=== PATIENT | female | born 1980 | race Caucasian/White ===

== ENCOUNTER 2017-07-24 20:09 | Inpatient (IN) | payer MEDICAID, OTHER ==
[2017-07-24] MEDS ORDERED: NORMAL SALINE 1000 ML 1,000 ML IV ONE ×2 (20:32→22:00)
[2017-07-24] MEDS ORDERED: HYDROMORPHONE HCL INJ/PF 2 MG/ML AMPULE IV ONE (20:32)
[2017-07-24] MEDS ORDERED: METOCLOPRAMIDE HCL INJ/PF 10 MG/2 ML SDV IV ONE (20:32)
--- NOTE | 2017-07-24 20:33 | ER Document Report ---
ED Medical Screen (RME) - General Chief Complaint: Abdominal Pain Stated Complaint: ABDOMINAL PAIN Time Seen by Provider: 07/24/17 20:26 Mode of Arrival: Ambulatory Information source: Patient Notes: 37-year-old female no previous abdominal history presents with complaints of left lower quadrant abdominal pain patient temperature 100.1 here tachycardic, patient did take Tylenol with codeine prior to arrival, she was seen at urgent care had urinalysis performed no signs of infection or blood were noted Patient denies any vaginal bleeding or discharge I have greeted and performed a rapid initial assessment of this patient. A comprehensive ED assessment and evaluation of the patient, analysis of test results and completion of the medical decision making process will be conducted by additional ED providers. PHYSICAL EXAMINATION: GENERAL: Well-appearing, well-nourished and in no acute distress. HEAD: Atraumatic, normocephalic. EYES: Pupils equal round extraocular movements intact, conjunctiva are normal. ENT: Nares patent NECK: Normal range of motion LUNGS: No respiratory distress Heart: Tachycardic Abdomen: Tender left lower quadrant with mild guarding Musculoskeletal: Normal range of motion NEUROLOGICAL: Normal speech, normal gait. PSYCH: Normal mood, normal affect. SKIN: Warm, Dry, normal turgor, no rashes or lesions noted. TRAVEL OUTSIDE OF THE [place] IN LAST 30 DAYS: No - Related Data Allergies/Adverse Reactions: No Known Allergies Allergy (Verified 07/24/17 20:09) Past Medical History - Social History Chew tobacco use (# tins/day): No Frequency of alcohol use: None Renal/ Medical History: Denies: Hx Peritoneal Dialysis Physical Exam - Vital signs Vitals: Temp Pulse Resp BP Pulse Ox 100.1 F 122 H 17 117/70 99 07/24/17 20:22 07/24/17 20:22 07/24/17 20:22 07/24/17 20:22 07/24/17 20:22 Course - Vital Signs Vital signs: Temp Pulse Resp BP Pulse Ox 100.1 F 122 H 17 117/70 99 07/24/17 20:22 07/24/17 20:22 07/24/17 20:22 07/24/17 20:22 07/24/17 20:22 Doctor's Discharge - Discharge Referrals: ROMMEL HILLMAN MD [Primary Care Provider] - Follow up as needed
[2017-07-24 20:59] LABS: HEMATOCRIT 40.7 % (36.0-47.0); HEMOGLOBIN 13.8 g/dL (12.0-15.5); MEAN CORPUSCULAR HEMOGLOBIN 28.7 pg (27.0-33.4); MEAN CORPUSCULAR HGB CONC 33.8 g/dL (32.0-36.0); MEAN CORPUSCULAR VOLUME 85 fl (80-97); PLATELET COUNT 454 10^3/uL (150-450); RED CELL DISTRIBUTION WIDTH 13.6 % (11.5-14.0); WHITE BLOOD COUNT 20.4 10^3/uL (4.0-10.5)
[2017-07-24 21:10] LABS: APPEARANCE,URINE CLEAR; BILIRUBIN,URINE NEGATIVE (NEGATIVE); COLOR,URINE YELLOW; GLUCOSE, URINE NEGATIVE (NEGATIVE); KETONES,URINE NEGATIVE (NEGATIVE); LEUKOCYTE ESTERASE,URINE NEGATIVE (NEGATIVE); NITRITE,URINE NEGATIVE (NEGATIVE); PROTEIN,URINE NEGATIVE (NEGATIVE); URINE SPECIFIC GRAVITY 1.012; UROBILINOGEN,URINE NEGATIVE mg/dL (<2.0)
[2017-07-24 21:25] LABS: ALANINE AMINOTRANSFERASE 26 U/L (9-52); ALBUMIN 4.2 g/dL (3.5-5.0); ALKALINE PHOSPHATASE 52 U/L (38-126); ANION GAP 11 (5-19); ASPARTATE AMINO TRANSFERASE 48 U/L (14-36); BILIRUBIN,DIRECT 0.3 mg/dL (0.0-0.4); BILIRUBIN,TOTAL 0.9 mg/dL (0.2-1.3); BLOOD UREA NITROGEN 6 mg/dL (7-20); CALCIUM 9.6 mg/dL (8.4-10.2); CARBON DIOXIDE 28 mmol/L (22-30); CHLORIDE 101 mmol/L (98-107); GLUCOSE 102 mg/dL (75-110); LIPASE 38.7 U/L (23-300); POTASSIUM 3.7 mmol/L (3.6-5.0); TOTAL PROTEIN 7.6 g/dL (6.3-8.2)
[2017-07-24 21:29] LABS: ABSOLUTE LYMPHOCYTES# (MANUAL) 2.4 10^3/uL (0.5-4.7); ABSOLUTE MONOCYTES # (MANUAL) 0.6 10^3/uL (0.1-1.4); ABSOLUTE NEUTROPHILS# (MANUAL) 16.9 10^3/uL (1.7-8.2); BAND NEUTROPHILS % (MANUAL) 1 % (3-5); BASOPHILS % (MANUAL) 1 % (0-2); EOSINOPHILS % (MANUAL) 1 % (0-6); LYMPHOCYTES % (MANUAL) 12 % (13-45); MONOCYTES % (MANUAL) 3 % (3-13); SEGMENTED NEUTROPHILS % (MAN) 82 % (42-78); TOTAL CELLS COUNTED 100
[2017-07-24 21:30] LABS: PLATELET COMMENT ADEQUATE
--- NOTE | 2017-07-24 21:45 | RADIOLOGY REPORT (SQ) ---
EXAM DESCRIPTION: CT ABD/PELVIS WITH IV ONLY COMPLETED DATE/TIME: 07/24/2017 9:35 pm REASON FOR STUDY: LLQ pain fever COMPARISON: None. TECHNIQUE: CT scan of the abdomen and pelvis performed using helical scanning technique with dynamic intravenous contrast injection. No oral contrast. Images reviewed with lung, soft tissue, and bone windows. Reconstructed coronal and sagittal MPR images reviewed. Delayed images for evaluation of the urinary system also acquired. All images stored on PACS. All CT scanners at this facility use dose modulation, iterative reconstruction, and/or weight based d osing when appropriate to reduce radiation dose to as low as reasonably achievable (ALARA). [facility]: Dose Right [facility]: CareDose [facility]: Dose Right [facility]: Teradose 4D [facility]: [employer] CONTRAST TYPE AND DOSE: contrast/concentration: Isovue 370.00 mg/ml; Total Contrast Delivered: 89.0 ml; Total Saline Delivered: 70.0 ml RENAL FUNCTION: None required. The patient is less than 50 years old. RADIATION DOSE: CT Rad equipment meets quality standard of care and radiation dose reduction techniq ues were employed. CTDIvol: 8.8 - 12.8 mGy. DLP: 1143 mGy-cm.. LIMITATIONS: None. FINDINGS: LOWER CHEST: No significant findings. No nodules or infiltrates. LIVER: Normal size. No masses. No dilated ducts. SPLEEN: Normal size. No focal lesions. PANCREAS: No masses. No significant calcifications. No adjacent inflammation or peripancreatic fluid collections. Pancreatic duct not dilated. GALLBLADDER: No identified stones by CT criteria. No inflammatory changes to suggest cholecystitis. ADRENAL GLANDS: No significant masses or asymmetry. RIGHT KIDNEY AND URETER: No solid masses. No significant calcifications. No hydronephrosis or hyd roureter. LEFT KIDNEY AND URETER: No solid masses. No significant calcifications. No hydronephrosis or hydr oureter. AORTA AND VESSELS: No aneurysm. No dissection. Renal arteries, SMA, celiac without stenosis. RETROPERITONEUM: No retroperitoneal adenopathy, hemorrhage or masses. BOWEL AND PERITONEAL CAVITY: Mesenteric stranding associated with segment of proximal sigmoid colon c ontaining diverticulum. No organized fluid collection. No ascites or free air. APPENDIX: Normal. PELVIS: 3 cm cyst left ovary. ABDOMINAL WALL: No masses. No hernias. BONES: No significant or acute findings. OTHER: No other significant finding. IMPRESSION: Sigmoid diverticulitis. TECHNICAL DOCUMENTATION: JOB ID: [id number] Quality ID # [id number]: Final reports with documentation of one or more dose reduction techniques (e.g., Au tomated exposure control, adjustment of the mA and/or kV according to patient size, use of iterative reconstruction technique) 2010 [employer]- All Rights Reserved Reading location - IP/workstation name: [facility]
[2017-07-24] MEDS ORDERED: METRONIDAZOLE 500 MG/NS RTU 100 ML IV ONE (21:59)
[2017-07-24] MEDS ORDERED: CIPROFLOXACIN 400 MG/D5W RTU 400 MG/200 ML RTUPB IV SCH (22:00)
[2017-07-24] MEDS ORDERED: ONDANSETRON HCL INJ/PF 4 MG/2 ML SDV IV ONE (22:25)
--- NOTE | 2017-07-24 22:27 | ER Document Report ---
ED General - General Chief Complaint: Abdominal Pain Stated Complaint: ABDOMINAL PAIN Time Seen by Provider: 07/24/17 20:26 Mode of Arrival: Ambulatory Notes: Patient is a 37-year-old female without chronic medical problems who presents with 48 hours of progressively worsening left lower quadrant abdominal pain with associated fever and vomiting. Patient states that the symptoms started gradually and have gotten progressively worse since that time. She does described as an aching, throbbing, constant pain to the left lower abdomen. Nothing improves the pain. Touching the area or moving worsens the pain. She denies any history of similar symptoms in the past. She has not seen her primary doctor regarding today's concerns. She denies any dysuria, vaginal bleeding, vaginal discharge, cough, sputum production, headache or neck pain. TRAVEL OUTSIDE OF THE [place] IN LAST 30 DAYS: No - Related Data Allergies/Adverse Reactions: No Known Allergies Allergy (Verified 07/24/17 20:09) Past Medical History - General Information source: Patient - Social History Smoking Status: Never Smoker Chew tobacco use (# tins/day): No Frequency of alcohol use: None Drug Abuse: None Lives with: Spouse/Significant other Family History: Reviewed & Not Pertinent Patient has suicidal ideation: No Patient has homicidal ideation: No Renal/ Medical History: Denies: Hx Peritoneal Dialysis Review of Systems - Review of Systems Notes: Constitutional: Positive for fever. HENT: Negative for sore throat. Eyes: Negative for visual changes. Cardiovascular: Negative for chest pain. Respiratory: Negative for shortness of breath. Gastrointestinal: Positive for abdominal pain and vomiting Genitourinary: Negative for dysuria. Musculoskeletal: Negative for back pain. Skin: Negative for rash. Neurological: Negative for headaches, weakness or numbness. 10 point ROS negative except as marked above and in HPI. Physical Exam - Vital signs Vitals: Temp Pulse Resp BP Pulse Ox 100.1 F 122 H 17 117/70 99 07/24/17 20:22 07/24/17 20:22 07/24/17 20:22 07/24/17 20:22 07/24/17 20:22 Interpretation: Tachycardic Notes: PHYSICAL EXAMINATION: GENERAL: Appears moderately uncomfortable but no acute distress HEAD: Atraumatic, normocephalic. EYES: Pupils equal round and reactive to light, extraocular movements intact, sclera anicteric, conjunctiva are normal. ENT: nares patent, oropharynx clear without exudates. Moderately dry mucous membranes. NECK: Normal range of motion, supple without lymphadenopathy LUNGS: Breath sounds clear to auscultation bilaterally and equal. No wheezes rales or rhonchi. HEART: Regular tachycardia without murmurs ABDOMEN: Soft, focal tenderness to the left lower quadrant without rebound or guarding. No other localized areas of tenderness. EXTREMITIES: Normal range of motion, no pitting or edema. No cyanosis. NEUROLOGICAL: No focal neurological deficits. Moves all extremities spontaneously and on command. PSYCH: Normal mood, normal affect. SKIN: Warm, Dry, normal turgor, no rashes or lesions noted. Course - Re-evaluation Re-evalutation: 07/24/17 22:25 Patient presents with signs and symptoms as well as CT and labs are consistent with acute diverticulitis. Patient did however present meeting sepsis criteria with a white count of 20, initially quite tachycardic, and has had a fever at home up to 100.4F. Patient CT does show diverticula is without any evidence of acute perforation. The remainder of her abdominal exam shows only localized tenderness to the left lower quadrant without rebound or guarding. She is otherwise nontoxic in appearance but continues to have nausea and vomiting here in the emergency department. She has also required IV analgesia for pain control. Given her initial vitals, her prominent leukocytosis and ongoing significant pain and nausea I do believe she requires hospitalization. She has been started on IV metronidazole and ciprofloxacin. I have discussed with the hospitalist for admission who has accepted. - Vital Signs Vital signs: Temp Pulse Resp BP Pulse Ox 98.6 F 84 17 104/62 98 07/25/17 00:18 07/25/17 00:18 07/25/17 00:18 07/25/17 00:18 07/25/17 00:18 - Laboratory Result Diagrams: 07/24/17 20:38 07/24/17 20:38 Laboratory results interpreted by me: 07/24/17 07/24/17 20:38 20:38 WBC 20.4 H Plt Count 454 H Seg Neuts % (Manual) 82 H Band Neutrophils % 1 L Lymphocytes % (Manual) 12 L Abs Neuts (Manual) 16.9 H BUN 6 L AST 48 H - Diagnostic Test Radiology reviewed: Reports reviewed Discharge - Discharge Clinical Impression: Diverticulitis Sepsis Qualifiers: Sepsis type: sepsis due to unspecified organism Qualified Code(s): A41.9 - Sepsis, unspecified organism Condition: Fair Disposition: ADMITTED INPATIENT Admitting Provider: Hospitalist Unit Admitted: Medical Floor
[2017-07-24] MEDS ORDERED: ACETAMINOPHEN 325 MG TABLET PO PRN (22:41)
[2017-07-24] MEDS ORDERED: OXYCODONE-ACETAMINOPHEN 5-325 MG TABLET PO PRN (22:41)
[2017-07-24] MEDS ORDERED: PROMETHAZINE HCL INJ 25 MG/1 ML VIAL IV PRN (22:41)
[2017-07-24] MEDS ORDERED: HYDROMORPHONE HCL INJ/PF 2 MG/ML AMPULE IV PRN (22:45)
--- NOTE | 2017-07-24 22:56 | PDOC H&P ---
History of Present Illness Admission Date/PCP: 07/24/17 22:41 RUMA WYNNE MD History of Present Illness: TOM SALAZAR is a 37 year old female with no past chronic medical illness presents with chief complaint of abdominal pain localized to her left lower quadrant associated with fever of 100.1, nausea and vomiting. Her CT scan of the abdomen is compatible with sigmoid diverticulitis. Her blood work shows also significant leukocytosis of 20,000. Patient denied any chest pain, cough, diaphoresis. She does not have diarrhea or dysuria. No headache dizziness or blurry vision. Past Medical History Medical History: None Past Surgical History Past Surgical History: Reports: None Social History Smoking Status: Never Smoker - Advance Directive Resuscitation Status: Full Code Family History Family History: None Parental Family History Reviewed: Yes Children Family History Reviewed: Yes Sibling(s) Family History Reviewed.: Yes Medication/Allergy Allergies/Adverse Reactions: No Known Allergies Allergy (Verified 07/24/17 20:09) Review of Systems Constitutional: PRESENT: as per HPI Eyes: PRESENT: as per HPI Cardiovascular: ABSENT: chest pain, dyspnea on exertion, edema, orthropnea, palpitations Respiratory: ABSENT: cough, hemoptysis Gastrointestinal: PRESENT: abdominal pain, nausea, vomiting Genitourinary: ABSENT: dysuria, hematuria Integumentary: ABSENT: rash, wounds Neurological: ABSENT: abnormal gait, abnormal speech, confusion, dizziness, focal weakness, syncope Psychiatric: ABSENT: anxiety, depression, homidical ideation, suicidal ideation Endocrine: ABSENT: cold intolerance, heat intolerance, polydipsia, polyuria Physical Exam Vital Signs: Temp Pulse Resp BP Pulse Ox 100.1 F 122 H 17 117/70 99 07/24/17 20:22 07/24/17 20:22 07/24/17 20:22 07/24/17 20:22 07/24/17 20:22 General appearance: PRESENT: mild distress Head exam: PRESENT: atraumatic, normocephalic Eye exam: PRESENT: conjunctiva pink, EOMI, PERRLA. ABSENT: scleral icterus Neck exam: ABSENT: carotid bruit, JVD, lymphadenopathy, thyromegaly Respiratory exam: PRESENT: clear to auscultation karl. ABSENT: rales, rhonchi, wheezes Cardiovascular exam: PRESENT: RRR. ABSENT: diastolic murmur, rubs, systolic murmur GI/Abdominal exam: PRESENT: tenderness - Left lower quadrant abdominal tenderness Rectal exam: PRESENT: deferred Extremities exam: PRESENT: full ROM. ABSENT: calf tenderness, clubbing, pedal edema Neurological exam: PRESENT: alert, awake, oriented to person, oriented to place , oriented to time, oriented to situation, CN II-XII grossly intact. ABSENT: motor sensory deficit Psychiatric exam: PRESENT: appropriate affect, normal mood. ABSENT: homicidal ideation, suicidal ideation Results Impressions: Abdomen/Pelvis CT 07/24/17 20:30 IMPRESSION: Sigmoid diverticulitis. Assessment & Plan - Diagnosis (1) Sigmoid diverticulitis Is this a current diagnosis for this admission?: Yes Plan: Patient has been started on IV ciprofloxacin and Flagyl. Cautious IV hydration Pain management and keep her n.p.o. (2) Sepsis Qualifiers: Sepsis type: sepsis due to unspecified organism Qualified Code(s): A41.9 - Sepsis, unspecified organism Is this a current diagnosis for this admission?: Yes Plan: As a #1 - Time Time Spent: 30 to 50 Minutes - Inpatient Certification Medical Necessity: Need Close Monitoring Due to Risk of Patient Decompensation, Need for IV Antibiotics
[2017-07-25] MEDS: MORPHINE SULFATE 10 MG/ML INJ IV PRN ×3 (00:31→20:37)
[2017-07-25] MEDS: METRONIDAZOLE 500 MG/NS RTU 100 ML IV SCH ×4 (03:32→20:38)
[2017-07-25 06:26] LABS: ABSOLUTE BASOPHILS # (AUTO) 0.1 10^3/uL (0.0-0.2); ABSOLUTE EOSINOPHILS # (AUTO) 0.3 10^3/uL (0.0-0.6); ABSOLUTE LYMPHOCYTES (AUTO) 2.6 10^3/uL (0.5-4.7); ABSOLUTE MONOCYTES (AUTO) 1.2 10^3/uL (0.1-1.4); ABSOLUTE NEUT (AUTO) 10.4 10^3/uL (1.7-8.2); BASOPHILS % (AUTO) 0.4 % (0-2); EOSINOPHILS % (AUTO) 1.8 % (0-6); HEMATOCRIT 34.2 % (36.0-47.0); LYMPHOCYTES % (AUTO) 17.9 % (13-45); MEAN CORPUSCULAR VOLUME 85 fl (80-97); MONOCYTES % (AUTO) 8.2 % (3-13); PLATELET COUNT 330 10^3/uL (150-450); RED BLOOD COUNT 4.04 10^6/uL (3.72-5.28); RED CELL DISTRIBUTION WIDTH 13.3 % (11.5-14.0); SEGMENTED NEUTROPHILS % (AUTO) 71.7 % (42-78); TOTAL CELLS COUNTED % (AUTO) 100 %; WHITE BLOOD COUNT 14.5 10^3/uL (4.0-10.5)
[2017-07-25 06:27] LABS: HEMOGLOBIN 11.3 g/dL (12.0-15.5)
[2017-07-25 06:35] LABS: ANION GAP 9 (5-19); BLOOD UREA NITROGEN 5 mg/dL (7-20); CARBON DIOXIDE 26 mmol/L (22-30); CHLORIDE 104 mmol/L (98-107); GLUCOSE 101 mg/dL (75-110); POTASSIUM 4.1 mmol/L (3.6-5.0); SODIUM 138.8 mmol/L (137-145)
[2017-07-25] MEDS: ENOXAPARIN SODIUM INJ 40 MG/0.4 ML DISP.SYRIN SUBCUT SCH (09:56)
[2017-07-25] MEDS: CIPROFLOXACIN 400 MG/D5W RTU 400 MG/200 ML RTUPB IV SCH ×2 (10:44→23:25)
[2017-07-25] MEDS: NORMAL SALINE 1000 ML 1,000 ML IV PRN (10:49)
--- NOTE | 2017-07-25 12:03 | PDOC PROGRESS REPORT ---
Subjective Progress Note for:: 07/25/17 Subjective:: Patient is continuing to have lower abdominal pain but it is improving. She had a dose of morphine last night and another this morning. She had one episode of emesis this morning and received some Phenergan and is feeling better. No fevers or chills. No chest pain or difficulty breathing. She is urinating well. No bowel movement today. We discussed the medical problems of diverticulosis and diverticulitis and she had a chance to ask her questions. Reason For Visit: SIGMOID DIVERTICULITIS Physical Exam Vital Signs: Temp Pulse Resp BP Pulse Ox 98.9 F 90 18 108/58 L 98 07/25/17 08:19 07/25/17 08:19 07/25/17 08:19 07/25/17 08:19 07/25/17 08:19 General appearance: PRESENT: no acute distress, cooperative, obese Eye exam: ABSENT: conjunctival injection, scleral icterus Mouth exam: PRESENT: moist, tongue midline Respiratory exam: PRESENT: clear to auscultation karl, unlabored. ABSENT: rales , rhonchi, wheezes Cardiovascular exam: PRESENT: RRR. ABSENT: systolic murmur Pulses: PRESENT: normal radial pulses GI/Abdominal exam: PRESENT: normal bowel sounds, soft, tenderness. ABSENT: distended, guarding, rebound Extremities exam: ABSENT: pedal edema Neurological exam: PRESENT: alert, awake, oriented to person, oriented to place , oriented to situation, CN II-XII grossly intact Psychiatric exam: PRESENT: appropriate affect. ABSENT: anxious Skin exam: PRESENT: dry, intact, warm Results Laboratory Results: 07/25/17 05:58 07/25/17 05:58 07/25/17 07/25/17 05:58 05:58 WBC 14.5 H RBC 4.04 Hgb 11.3 L D Hct 34.2 L MCV 85 MCH 28.0 MCHC 33.0 RDW 13.3 Plt Count 330 Seg Neutrophils % 71.7 Lymphocytes % 17.9 Monocytes % 8.2 Eosinophils % 1.8 Basophils % 0.4 Absolute Neutrophils 10.4 H Absolute Lymphocytes 2.6 Absolute Monocytes 1.2 Absolute Eosinophils 0.3 Absolute Basophils 0.1 Sodium 138.8 Potassium 4.1 Chloride 104 Carbon Dioxide 26 Anion Gap 9 BUN 5 L Creatinine 0.64 Est GFR ( Amer) > 60 Est GFR (Non-Af Amer) > 60 Glucose 101 Calcium 9.0 Impressions: Abdomen/Pelvis CT 07/24/17 20:30 IMPRESSION: Sigmoid diverticulitis. Assessment & Plan - Diagnosis (1) Sigmoid diverticulitis Is this a current diagnosis for this admission?: Yes Plan: Patient's leukocytosis is improved significantly on Cipro and Flagyl and so we will continue these medications. As she has had nausea and vomiting I will not change these medications to p.o. at this time. CT scan does not show abscess or other complication. We will continue to monitor clinically and transition to oral antibiotics when she is more stable. (2) Acute abdominal pain Is this a current diagnosis for this admission?: Yes Plan: Secondary to acute diverticulitis. I have discontinued oral oxycodone and IV Dilaudid and we will continue with IV morphine that she has been using with good effect. He is not using much IV morphine. She is me that she is able to tolerate a lot of pain and prefers not to use these medications and I told her that was fine. Once she is able to eat and drink without difficulty we can transition her to oral medications. (3) Nausea and vomiting Is this a current diagnosis for this admission?: Yes Plan: Likely secondary to acute diverticulitis. It is also possible that it is related to morphine that she did not vomit after morphine last night. Will continue as needed Phenergan every 6 hours for nausea and vomiting. Will continue morphine and if she has another vomiting episode after morphine we will change that medication. She is feeling very dry and I will give her a trial of ice chips. If this causes worsening pain we will discontinue ice chips. - Time Time Spent with patient: 25-34 minutes Medications reviewed and adjusted accordingly: Yes - Inpatient Certification Based on my medical assessment, after consideration of the patient's comorbidities, presenting symptoms, or acuity I expect that the services needed warrant INPATIENT care.: Yes I certify that my determination is in accordance with my understanding of Medicare's requirements for reasonable and necessary INPATIENT services [42 CFR 412.3e].: Yes Medical Necessity: Need for IV Antibiotics
[2017-07-25] MEDS ORDERED: ACETAMINOPHEN 325 MG TABLET PO PRN (20:26)
[2017-07-26] MEDS: PROMETHAZINE HCL INJ 25 MG/1 ML VIAL IV PRN ×4 (01:17→19:56)
[2017-07-26] MEDS: METRONIDAZOLE 500 MG/NS RTU 100 ML IV SCH ×4 (02:08→20:54)
[2017-07-26 06:37] LABS: ABSOLUTE EOSINOPHILS # (AUTO) 0.1 10^3/uL (0.0-0.6); ABSOLUTE LYMPHOCYTES (AUTO) 1.2 10^3/uL (0.5-4.7); ABSOLUTE MONOCYTES (AUTO) 0.7 10^3/uL (0.1-1.4); ABSOLUTE NEUT (AUTO) 10.2 10^3/uL (1.7-8.2); BASOPHILS % (AUTO) 0.4 % (0-2); HEMATOCRIT 32.8 % (36.0-47.0); HEMOGLOBIN 11.2 g/dL (12.0-15.5); LYMPHOCYTES % (AUTO) 10.1 % (13-45); MEAN CORPUSCULAR HEMOGLOBIN 28.8 pg (27.0-33.4); MEAN CORPUSCULAR VOLUME 85 fl (80-97); MONOCYTES % (AUTO) 5.6 % (3-13); PLATELET COUNT 288 10^3/uL (150-450); RED BLOOD COUNT 3.87 10^6/uL (3.72-5.28); RED CELL DISTRIBUTION WIDTH 13.7 % (11.5-14.0); SEGMENTED NEUTROPHILS % (AUTO) 82.9 % (42-78); TOTAL CELLS COUNTED % (AUTO) 100 %; WHITE BLOOD COUNT 12.3 10^3/uL (4.0-10.5)
[2017-07-26 06:57] LABS: ANION GAP 8 (5-19); BLOOD UREA NITROGEN 7 mg/dL (7-20); CARBON DIOXIDE 25 mmol/L (22-30); CHLORIDE 106 mmol/L (98-107); GLUCOSE 96 mg/dL (75-110); POTASSIUM 3.9 mmol/L (3.6-5.0); SODIUM 138.8 mmol/L (137-145)
[2017-07-26] MEDS: CIPROFLOXACIN 400 MG/D5W RTU 400 MG/200 ML RTUPB IV SCH ×2 (10:08→22:42)
[2017-07-26] MEDS: ENOXAPARIN SODIUM INJ 40 MG/0.4 ML DISP.SYRIN SUBCUT SCH (10:08)
[2017-07-26] MEDS: NORMAL SALINE 1000 ML 1,000 ML IV PRN ×2 (11:32→22:42)
[2017-07-26] MEDS: HYDROMORPHONE HCL INJ/PF 2 MG/ML AMPULE IV PRN ×2 (13:24→22:49)
--- NOTE | 2017-07-26 16:26 | PDOC PROGRESS REPORT ---
Subjective Progress Note for:: 07/26/17 Subjective:: Her abdominal pain is improving, she continues to have nausea and vomiting. It is possible that her morphine for abdominal pain is causing the vomiting. She is not having chest pain or difficulty breathing. She is sleeping fine. She would like to try some ice chips and I think that is fine. No fevers or chills. No bloody stools. Not moved her bowels. She has dark urine. Reason For Visit: SIGMOID DIVERTICULITIS, nausea and vomiting Physical Exam Vital Signs: Temp Pulse Resp BP Pulse Ox 98.7 F 94 16 117/66 100 07/26/17 11:58 07/26/17 11:58 07/26/17 11:58 07/26/17 11:58 07/26/17 11:58 Intake & Output 07/25/17 07/26/17 07/27/17 06:59 06:59 06:59 Intake Total 1637 Output Total 400 Balance 1237 General appearance: PRESENT: no acute distress, cooperative Head exam: PRESENT: atraumatic, normocephalic Eye exam: ABSENT: conjunctival injection, scleral icterus Mouth exam: PRESENT: moist, tongue midline Respiratory exam: PRESENT: clear to auscultation karl, unlabored. ABSENT: rales , rhonchi, wheezes Cardiovascular exam: PRESENT: RRR, systolic murmur Pulses: PRESENT: normal radial pulses, normal dorsalis pedis pul GI/Abdominal exam: PRESENT: normal bowel sounds, soft, tenderness. ABSENT: distended, guarding, rebound Extremities exam: ABSENT: pedal edema Musculoskeletal exam: PRESENT: normal inspection Neurological exam: PRESENT: altered, awake, oriented to person, oriented to place, oriented to situation, CN II-XII grossly intact Psychiatric exam: PRESENT: appropriate affect. ABSENT: anxious Skin exam: PRESENT: dry, intact, warm Results Laboratory Results: 07/26/17 06:11 07/26/17 06:11 07/26/17 07/26/17 06:11 06:11 WBC 12.3 H RBC 3.87 Hgb 11.2 L Hct 32.8 L MCV 85 MCH 28.8 MCHC 34.0 RDW 13.7 Plt Count 288 Seg Neutrophils % 82.9 H Lymphocytes % 10.1 L Monocytes % 5.6 Eosinophils % 1.0 Basophils % 0.4 Absolute Neutrophils 10.2 H Absolute Lymphocytes 1.2 Absolute Monocytes 0.7 Absolute Eosinophils 0.1 Absolute Basophils 0.0 Sodium 138.8 Potassium 3.9 Chloride 106 Carbon Dioxide 25 Anion Gap 8 BUN 7 Creatinine 0.63 Est GFR ( Amer) > 60 Est GFR (Non-Af Amer) > 60 Glucose 96 Calcium 9.0 Magnesium 2.1 Impressions: Abdomen/Pelvis CT 07/24/17 20:30 IMPRESSION: Sigmoid diverticulitis. Assessment & Plan - Diagnosis (1) Sigmoid diverticulitis Is this a current diagnosis for this admission?: Yes Plan: We will continue Cipro and Flagyl and this patient continues to have nausea and vomiting and then I will consider transitioning her to Zosyn to see if the antibiotics are causing it. Her abdominal pain persists but is improving. She has not moved her bowels. No bloody stools. She is now just starting ice chips and may be a martina ivania today. (2) Acute abdominal pain Is this a current diagnosis for this admission?: Yes Plan: Overall improving but still requiring pain medication. If her pain is mild she is taking a Tylenol if it is more severe she is using morphine. Because of the nausea and vomiting I am going to switch the morphine to Dilaudid to see if that helps use nausea and vomiting. (3) Nausea and vomiting Is this a current diagnosis for this admission?: Yes Plan: Unknown etiology. Unlikely to be related to the diverticulitis. Possibly medication effect. Transitioning morphine 4 mg IV to Dilaudid half milligram IV as needed pain. Will consider transitioning Cipro and Flagyl to Zosyn if she continues to have vomiting. Will continue fluid hydration. - Time Time Spent with patient: 25-34 minutes Medications reviewed and adjusted accordingly: Yes - Inpatient Certification Based on my medical assessment, after consideration of the patient's comorbidities, presenting symptoms, or acuity I expect that the services needed warrant INPATIENT care.: Yes I certify that my determination is in accordance with my understanding of Medicare's requirements for reasonable and necessary INPATIENT services [42 CFR 412.3e].: Yes Medical Necessity: Need For IV Fluids
[2017-07-26 18:41] LABS: APPEARANCE,URINE SLIGHTLY-CLOUDY; BILIRUBIN,URINE NEGATIVE (NEGATIVE); COLOR,URINE YELLOW; GLUCOSE, URINE NEGATIVE (NEGATIVE); KETONES,URINE 80 mg/dL (NEGATIVE); LEUKOCYTE ESTERASE,URINE TRACE (NEGATIVE); NITRITE,URINE NEGATIVE (NEGATIVE); PROTEIN,URINE NEGATIVE (NEGATIVE); URINE SPECIFIC GRAVITY 1.015; UROBILINOGEN,URINE NEGATIVE mg/dL (<2.0)
[2017-07-27] MEDS: METRONIDAZOLE 500 MG/NS RTU 100 ML IV SCH ×4 (03:44→20:45)
[2017-07-27 07:13] LABS: ABSOLUTE BASOPHILS # (AUTO) 0.1 10^3/uL (0.0-0.2); ABSOLUTE EOSINOPHILS # (AUTO) 0.3 10^3/uL (0.0-0.6); ABSOLUTE LYMPHOCYTES (AUTO) 2.6 10^3/uL (0.5-4.7); ABSOLUTE MONOCYTES (AUTO) 0.7 10^3/uL (0.1-1.4); ABSOLUTE NEUT (AUTO) 3.9 10^3/uL (1.7-8.2); HEMATOCRIT 32.5 % (36.0-47.0); HEMOGLOBIN 11.1 g/dL (12.0-15.5); LYMPHOCYTES % (AUTO) 34.7 % (13-45); MEAN CORPUSCULAR HEMOGLOBIN 28.7 pg (27.0-33.4); MEAN CORPUSCULAR HGB CONC 34.1 g/dL (32.0-36.0); MEAN CORPUSCULAR VOLUME 84 fl (80-97); MONOCYTES % (AUTO) 9.1 % (3-13); PLATELET COUNT 347 10^3/uL (150-450); RED BLOOD COUNT 3.86 10^6/uL (3.72-5.28); RED CELL DISTRIBUTION WIDTH 13.2 % (11.5-14.0); SEGMENTED NEUTROPHILS % (AUTO) 51.2 % (42-78); TOTAL CELLS COUNTED % (AUTO) 100 %; WHITE BLOOD COUNT 7.6 10^3/uL (4.0-10.5)
[2017-07-27 07:33] LABS: ANION GAP 9 (5-19); BLOOD UREA NITROGEN 8 mg/dL (7-20); CALCIUM 8.8 mg/dL (8.4-10.2); CARBON DIOXIDE 24 mmol/L (22-30); CHLORIDE 107 mmol/L (98-107); GLUCOSE 75 mg/dL (75-110); POTASSIUM 4.2 mmol/L (3.6-5.0); SODIUM 139.6 mmol/L (137-145)
[2017-07-27] MEDS: ENOXAPARIN SODIUM INJ 40 MG/0.4 ML DISP.SYRIN SUBCUT SCH (10:52)
[2017-07-27] MEDS: CIPROFLOXACIN 400 MG/D5W RTU 400 MG/200 ML RTUPB IV SCH ×2 (10:52→22:25)
[2017-07-27] MEDS: NORMAL SALINE 1000 ML 1,000 ML IV PRN ×2 (11:56→16:03)
--- NOTE | 2017-07-27 14:38 | PDOC PROGRESS REPORT ---
Subjective Progress Note for:: 07/27/17 Subjective:: Improving clinically. Abdominal pain persists but decreased. Denies nausea or vomiting. No fevers, chills, CP. Passing gas. No BMs. Agreeable to trial POs. No other complaints. Reason For Visit: SIGMOID DIVERTICULITIS Physical Exam Vital Signs: Temp Pulse Resp BP Pulse Ox 98.5 F 72 12 115/65 100 07/27/17 11:34 07/27/17 11:34 07/27/17 11:34 07/27/17 11:34 07/27/17 11:34 Intake & Output 07/26/17 07/27/17 07/28/17 06:59 06:59 06:59 Intake Total 1637 3135 Output Total 400 1400 800 Balance 1237 1735 -800 Weight 85.4 kg General appearance: PRESENT: no acute distress, cooperative, well-developed, well-nourished Head exam: PRESENT: normocephalic Mouth exam: PRESENT: dry mucosa Respiratory exam: PRESENT: unlabored Cardiovascular exam: PRESENT: +S1, +S2. ABSENT: tachycardia GI/Abdominal exam: PRESENT: normal bowel sounds, soft, tenderness - LLQ tender to palpation. ABSENT: firm, guarding Neurological exam: PRESENT: alert, awake, CN II-XII grossly intact Psychiatric exam: PRESENT: appropriate affect Skin exam: PRESENT: dry, intact Results Laboratory Results: 07/27/17 06:09 07/27/17 06:09 07/26/17 07/27/17 07/27/17 17:50 06:09 06:09 WBC 7.6 RBC 3.86 Hgb 11.1 L Hct 32.5 L MCV 84 MCH 28.7 MCHC 34.1 RDW 13.2 Plt Count 347 Seg Neutrophils % 51.2 Lymphocytes % 34.7 Monocytes % 9.1 Eosinophils % 4.0 Basophils % 1.0 Absolute Neutrophils 3.9 Absolute Lymphocytes 2.6 Absolute Monocytes 0.7 Absolute Eosinophils 0.3 Absolute Basophils 0.1 Sodium 139.6 Potassium 4.2 Chloride 107 Carbon Dioxide 24 Anion Gap 9 BUN 8 Creatinine 0.55 Est GFR ( Amer) > 60 Est GFR (Non-Af Amer) > 60 Glucose 75 Calcium 8.8 Urine Color YELLOW Urine Appearance SLIGHTLY-CLOUDY Urine pH 6.0 Ur Specific [place] 1.015 Urine Protein NEGATIVE Urine Glucose (UA) NEGATIVE Urine Ketones 80 H Urine Blood NEGATIVE Urine Nitrite NEGATIVE Ur Leukocyte Esterase TRACE H Urine WBC (Auto) 1 Urine RBC (Auto) 1 Impressions: Abdomen/Pelvis CT 07/24/17 20:30 IMPRESSION: Sigmoid diverticulitis. Assessment & Plan - Diagnosis (1) Sigmoid diverticulitis Is this a current diagnosis for this admission?: Yes Plan: Diagnosed on CT scan. Clinically improving. Continue IV Cipro/Flagyl for now. If tolerates diet can transition to PO. - Likely discharge to home on 07/28, complete 7 day course - Should follow up with GI in 3-6 months (2) Nausea and vomiting Is this a current diagnosis for this admission?: Yes Plan: Improved at this point. Has phenergan IV ordered PRN - Time Time Spent with patient: Less than 15 minutes Anticipated discharge: Home Within: within 24 hours
[2017-07-27] MEDS: PROMETHAZINE HCL INJ 25 MG/1 ML VIAL IV PRN (21:53)
[2017-07-28] MEDS: METRONIDAZOLE 500 MG/NS RTU 100 ML IV SCH ×2 (02:05→08:29)
[2017-07-28] MEDS: CIPROFLOXACIN 400 MG/D5W RTU 400 MG/200 ML RTUPB IV SCH (10:08)
[2017-07-28] MEDS: ENOXAPARIN SODIUM INJ 40 MG/0.4 ML DISP.SYRIN SUBCUT SCH (10:09)
--- NOTE | 2017-07-28 11:25 | PDOC PROGRESS REPORT ---
Subjective Progress Note for:: 07/28/17 Subjective:: Abdomen less painful. Tolerating a liquid diet. Reason For Visit: SIGMOID DIVERTICULITIS Physical Exam Vital Signs: Temp Pulse Resp BP Pulse Ox 98.4 F 71 16 111/67 99 07/28/17 07:33 07/28/17 07:33 07/28/17 07:33 07/28/17 07:33 07/28/17 07:33 Intake & Output 07/27/17 07/28/17 07/29/17 05:59 05:59 05:59 Intake Total 2397 3090 Output Total 1400 2500 Balance 997 590 Weight 188 lb 4.396 oz 182 lb 15.739 oz General appearance: PRESENT: no acute distress Respiratory exam: PRESENT: clear to auscultation karl Cardiovascular exam: PRESENT: RRR GI/Abdominal exam: PRESENT: soft, tenderness - Mildly tender left lower quadrant and less so along the left margin below the splenic flexure Extremities exam: PRESENT: other - No edema Neurological exam: PRESENT: alert Psychiatric exam: PRESENT: appropriate affect Skin exam: PRESENT: warm Results Laboratory Results: 07/27/17 06:09 07/27/17 06:09 Impressions: Abdomen/Pelvis CT 07/24/17 20:30 IMPRESSION: Sigmoid diverticulitis. Assessment & Plan - Diagnosis (1) Sigmoid diverticulitis Is this a current diagnosis for this admission?: Yes Plan: Change Cipro and Flagyl over to oral. Advance her diet. If tolerated home tomorrow (2) Sepsis Qualifiers: Sepsis type: sepsis due to unspecified organism Qualified Code(s): A41.9 - Sepsis, unspecified organism Is this a current diagnosis for this admission?: Yes Plan: White count has normalized
[2017-07-28] MEDS: METRONIDAZOLE 500 MG TABLET PO SCH ×2 (14:17→22:25)
[2017-07-28] MEDS: BUPROPION HCL 100 MG TABLET PO SCH (22:26)
[2017-07-28] MEDS: CIPROFLOXACIN HCL 500 MG TABLET PO SCH (22:26)
[2017-07-29] MEDS: METRONIDAZOLE 500 MG TABLET PO SCH ×2 (05:38→12:59)
[2017-07-29] MEDS ORDERED: (PENDING PHARMACY ID) (Bupropion Hcl [Wellbutrin Sr 100 Mg Tablet] 1 TAB) PO SCH (10:00)
[2017-07-29] MEDS: BUPROPION HCL 100 MG TABLET PO SCH (10:08)
[2017-07-29] MEDS: ENOXAPARIN SODIUM INJ 40 MG/0.4 ML DISP.SYRIN SUBCUT SCH (10:08)
[2017-07-29] MEDS: CIPROFLOXACIN HCL 500 MG TABLET PO SCH (10:08)
[2017-07-29 11:59] VITALS: BP 107/62
--- NOTE | 2017-07-30 09:19 | PDOC DISCHARGE SUMMARY ---
General - Admit/Disc Date/PCP Admission Date/Primary Care Provider: 07/24/17 22:41 RUMA WYNNE MD Discharge Date: 07/30/17 - Discharge Diagnosis (1) Sigmoid diverticulitis Is this a current diagnosis for this admission?: Yes Summary: Treated with Cipro and Flagyl, transitioned over to orals, diet is been advanced to regular, and she is rather anxious to go home. We will send her out on another week of both. (2) Sepsis Is this a current diagnosis for this admission?: Yes Summary: By clinical criteria. Blood cultures were negative. - Additional Information Resuscitation Status: Full Code Discharge Diet: Regular Discharge Activity: Activity As Tolerated, Balance Activity w/Rest Prescriptions: Ciprofloxacin HCl [Cipro 500 mg Tablet] 500 mg PO Q12 #14 tablet Metronidazole [Flagyl 500 mg Tablet] 500 mg PO Q8 #21 tablet Home Medications: Bupropion HCl [Wellbutrin Sr 100 mg Tablet] 1 tab PO DAILY 07/27/17 Loratadine/Pseudoephedrine [Loratadine-D 24Hr Tablet] 1 tab PO DAILY 07/27/17 Ciprofloxacin HCl [Cipro 500 mg Tablet] 500 mg PO Q12 #14 tablet 07/29/17 Metronidazole [Flagyl 500 mg Tablet] 500 mg PO Q8 #21 tablet 07/29/17 History of Present Illness Patient complains of: Abdominal pain, nausea, vomiting. History of Present Illness: TOM Schmidt a 37 year old female with no past chronic medical illness presents with chief complaint of abdominal pain localized to her left lower quadrant associated with fever of 100.1, nausea and vomiting. Her CT scan of the abdomen is compatible with sigmoid diverticulitis. Her blood work shows also significant leukocytosis of 20,000. Patient denied any chest pain, cough, diaphoresis. She does not have diarrhea or dysuria. No headache dizziness or blurry vision. Abdomen/Pelvis CT 07/24/17 20:30 IMPRESSION: Sigmoid diverticulitis. Hospital Course Hospital Course: She was admitted started on IV Cipro and Flagyl, pain medication was provided, hydration was maintained with IV fluids, and she is made steady progress. She has been transitioned over to oral antibiotics, her diet is been advanced to regular which she is tolerating without difficulty, and she would like to complete her convalescence at home. Physical Exam Vital Signs: Temp Pulse Resp BP Pulse Ox 98.1 F 75 17 107/62 99 07/29/17 11:54 07/29/17 11:54 07/29/17 11:54 07/29/17 11:54 07/29/17 11:54 Intake & Output 07/29/17 07/30/17 07/31/17 05:59 05:59 05:59 Intake Total 1950 Output Total 2200 Balance -250 Weight 183 lb 10.321 oz General appearance: PRESENT: no acute distress Respiratory exam: PRESENT: clear to auscultation karl Cardiovascular exam: PRESENT: RRR GI/Abdominal exam: PRESENT: soft, tenderness - Still mildly tender in the left lower quadrant Musculoskeletal exam: PRESENT: normal inspection Neurological exam: PRESENT: alert Psychiatric exam: PRESENT: appropriate affect Skin exam: PRESENT: warm Results Laboratory Results: 07/27/17 06:09 07/27/17 06:09 07/24/17 23:20 Blood Blood Culture - Final NO GROWTH IN 5 DAYS Impressions: Abdomen/Pelvis CT 07/24/17 20:30 IMPRESSION: Sigmoid diverticulitis. Qualifiers - * PATIENT BEING DISCHARGED WITH ANY OF THE FOLLOWING DIAGNOSIS: No
== END 2017-07-29 13:05 | disposition home or self-care (01) | DRG 872 ==
LOC: ER 20:09 → EH 22:41 → 2N 23:58 → 3S 07-26 01:05 → 2N 07-27 15:42
PROVIDERS: ADMIT Internal Medicine; ATTEND Internal Medicine
DX: A41.9 Sepsis, unspecified organism (principal); K57.92 Diverticulitis of intestine, part unspecified, without perforation or abscess without bleeding
CPT/HCPCS: 36415; 74177; 80048; 80053; 81001; 81025; 83605; 83690; 83735; 85025; 87040; 94799; 96361; 96365; 96375; 99285; J0744; J1170; J1650; J2270; J2405; J2550; J2765; J7030

== ENCOUNTER 2020-01-08 06:56 | Day surgery (SDC) | payer MEDICAID ==
[~2020-01-08 06:56] MED LIST: PROPOFOL INJ 200 MG/20 ML VIAL IV ONE
[2020-01-08] MEDS ORDERED: SIMETHICONE 80 MG TAB.CHEW ONE (08:38)
[2020-01-08] MEDS ORDERED: SIMETHICONE 80 MG TAB.CHEW PO ONE (08:40)
[2020-01-08 08:45] VITALS: BP 119/62
--- NOTE | 2020-01-08 11:33 | Operative Report ---
Operative Report DATE OF SURGERY: 01/08/20 Operative Report: The risk, benefits and alternatives of the procedure including the risk of bleeding, perforation requiring surgery have been explained to the patient in detail and informed consent has been obtained. Patient is placed in a left, lateral decubital position. Timeout was called. Propofol medication is administered. Rectal examination is done which did not reveal any masses, tears or fissures. An Olympus videoscope was introduced into the patient's rectum. The scope was then carefully advanced all the way to the cecum. Cecum was identified by the usual anatomical landmarks including the ileocecal valve as well as the appendiceal office. Photodocumentation is obtained. Scope was then sequentially pulled back via the various segments of the colon including the ascending colon, hepatic flexure, transverse colon, splenic flexure, descending colon finding to the rectosigmoid portions of the colon. Retroflexion maneuver is performed. PREOPERATIVE DIAGNOSIS: Change in bowel habits POSTOPERATIVE DIAGNOSIS: Mild right colon inflammation status post biopsy. Occasional diverticulosis OPERATION: Colonoscopy with biopsy SURGEON: ARIS RAMOS ANESTHESIA: LMAC TISSUE REMOVED OR ALTERED: As noted above. COMPLICATIONS: None. ESTIMATED BLOOD LOSS: None. INTRAOPERATIVE FINDINGS: As noted above. PROCEDURE: Patient tolerated the procedure well. No immediate postprocedure complications are noted. Patient is discharged in good condition. Discharge date 01/08/2020. Discharge diet: Regular. Discharge activity: Regular. 2 to 3-week follow-up to discuss findings. Patient is instructed call the office or proceed to the emergency room should there be any further problems or questions. Wait on the pathology.
== END 2020-01-08 09:05 | disposition home or self-care (01) ==
LOC: END 06:56
PROVIDERS: ATTEND Internal Medicine Gastroenterology
DX: K57.32 Diverticulitis of large intestine without perforation or abscess without bleeding (principal); K52.9 Noninfective gastroenteritis and colitis, unspecified; Z03.818 Encounter for observation for suspected exposure to other biological agents ruled out; F32.9 Major depressive disorder, single episode, unspecified; Z79.899 Other long term (current) drug therapy; Z79.1 Long term (current) use of non-steroidal anti-inflammatories (NSAID)
CPT/HCPCS: 45380; 87635; 88305 ×2; 00811; J2704; C9803; 811